=== PATIENT | male | born 1950 | race Caucasian/White ===

== ENCOUNTER 2017-11-02 11:33 | Outpatient (CLI) | payer MEDICARE, OTHER | END 2017-11-02 11:35 | LOC: LABRHC 11:33 | PROVIDERS: ATTEND Family Medicine | DX: C44.611 Basal cell carcinoma of skin of unspecified upper limb, including shoulder (principal) ==

== ENCOUNTER 2018-12-27 16:18 | Outpatient (CLI) | payer MEDICARE, OTHER ==
[2018-12-27 17:27] LABS: A1C 5.2 % (<5.7); HDL 79 mg/dL (>40); eGFR (Non-African) > 60
== END 2018-12-27 16:30 ==
LOC: LAB 16:18
PROVIDERS: ATTEND Family Medicine
DX: R73.9 Hyperglycemia, unspecified (principal); Z20.5 Contact with and (suspected) exposure to viral hepatitis; Z20.6 Contact with and (suspected) exposure to human immunodeficiency virus [HIV]
CPT/HCPCS: 36415; 80053; 80061; 83036; 86703; 86706; 87521